=== PATIENT | female | born 1960 | race American Indian/Alaskan Native ===

== ENCOUNTER 2021-11-05 05:32 | Emergency (ER) | payer OTHER ==
--- NOTE | 2021-11-05 07:36 | Emergency Department Report ---
ED Headache HPI - General Chief Complaint: High BP Stated Complaint: BP CHECK Time Seen by Provider: 11/05/21 07:07 Source: patient Exam Limitations: no limitations - History of Present Illness Initial Comments: Chief complaint: "I had a throbbing headache. I saw that my blood pressure was high." HPI: This 61-year-old female with history of hypertension who presents with throbbing headache and elevated blood pressure. She had frontal throbbing headache. Moderate in severity. Aleve provided minimal relief. Blood pressure systolic 184 mmHg at home. She has not seen her primary doctor in 1 year. Has been without her medication losartan 25 mg for the same period of time. She denies blurry vision, chest pain. She does not have any other associated symptoms. Timing/Duration: other (Several days of intermittent headache) Quality: moderate Head Injury Location: frontal Recent Head Trauma: occasional headaches Associated Symptoms: denies symptoms Home Medications: Ambulatory Orders Losartan [Cozaar] 25 mg PO QDAY 90 Days #90 tablet 11/05/21 ED Review of Systems ROS: Stated complaint: BP CHECK Other details as noted in HPI Comment: All other systems reviewed and negative Constitutional: denies: chills, fever, malaise Respiratory: denies: cough, shortness of breath Cardiovascular: denies: chest pain Gastrointestinal: denies: abdominal pain, nausea, vomiting Neurological: headache. denies: numbness, paresthesias, confusion, abnormal gait, vertigo ED Past Medical Hx - Past Medical History Previous Medical History?: Yes Hx Hypertension: Yes - Surgical History Past Surgical History?: No - Family History Family history: hypertension - Social History Smoking Status: Never Smoker Substance Use Type: None - Medications Home Medications: Home Medications Medication Instructions Recorded Confirmed Last Taken Type Losartan [Cozaar] 25 mg PO QDAY 90 Days #90 tablet 11/05/21 Unknown Rx ED Physical Exam - General Limitations: No Limitations General appearance: alert, in no apparent distress, other (Appears well, no acute distress, nontoxic-appearing) - Head Head exam: Present: atraumatic, normocephalic - Eye Eye exam: Present: normal appearance - ENT ENT exam: Present: mucous membranes moist - Neck Neck exam: Present: normal inspection, full ROM - Respiratory Respiratory exam: Present: normal lung sounds bilaterally. Absent: respiratory distress, wheezes, rales, rhonchi - Cardiovascular Cardiovascular Exam: Present: regular rate, normal rhythm, normal heart sounds. Absent: systolic murmur, diastolic murmur, rubs, gallop - GI/Abdominal GI/Abdominal exam: Present: soft, normal bowel sounds - Extremities Exam Extremities exam: Present: normal inspection - Neurological Exam Neurological exam: Present: alert, oriented X3 - Psychiatric Psychiatric exam: Present: normal affect, normal mood - Skin Skin exam: Present: warm, dry, intact, normal color. Absent: rash ED Course Vital Signs 11/05/21 05:59 Temperature 98.9 F Pulse Rate 93 H Respiratory 17 Rate Blood Pressure 182/94 [Left] O2 Sat by Pulse 97 Oximetry ED Medical Decision Making - Medical Decision Making 1. Tension headache: No red flags such as sudden quick onset, severe symptomatology, fever, neurological signs 2. Hypertensive Urgency: No evidence of end organ damage. Losartan 90 days prescription with refill Critical care attestation.: If time is entered above; I have spent that time in minutes in the direct care of this critically ill patient, excluding procedure time. ED Disposition Clinical Impression: Tension headache, Hypertensive urgency Disposition: 01 HOME / SELF CARE / HOMELESS Is pt being admited?: No Does the pt Need Aspirin: No Condition: Stable Instructions: Tension Headache, Adult, [id number], Hypertension, Adult, [id number] Prescriptions: Losartan [Cozaar] 25 mg PO QDAY 90 Days #90 tablet Referrals: PRIMARY CAREMD [Primary Care Provider] - 3-5 Days KEVON POOL MD [Staff Physician] - 3-5 Days Forms: Work/School Release Form(ED)
[2021-11-05] MEDS ORDERED: ACETAMINOPHEN 500 MG TAB PO SCH (08:00)
[2021-11-05] MEDS ORDERED: LOSARTAN 25 MG TAB PO SCH (08:00)
[2021-11-05 08:27] VITALS: BP 119/93
== END 2021-11-05 08:36 | disposition home or self-care (01) ==
LOC: ED 05:32
DX: I10 Essential (primary) hypertension (principal); G44.209 Tension-type headache, unspecified, not intractable
CPT/HCPCS: 99282